=== PATIENT | male | born 1950 | race Caucasian/White ===

== ENCOUNTER 2016-08-10 13:25 | Inpatient (IN) | payer BC ==
[2016-08-10 13:36] VITALS: BMI 25.9
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
[2016-08-10] MEDS ORDERED: SODIUM CHLORIDE 1,000 ML IV STA (16:31)
[2016-08-10 16:46] LABS: BASOPHIL 0.9 % (0-2.0); EOSINOPHIL 0.7 % (0-4.5); MCH 29.1 pg (25.7-33.7); MCHC 33.5 g/dl (32.0-35.9); MEAN CELL VOLUME 87.1 fl (80-96); MEAN PLT VOLUME 8.1 fl (7.5-11.1); NEUTROPHILS 70.7 % (42.8-82.8); PLATELET COUNT 215 K/MM3 (134-434); RDW 14.1 % (11.9-15.9); WHITE BLOOD COUNT 7.3 K/mm3 (4.0-10.0)
[2016-08-10 17:07] LABS: ANION GAP 8 (8-16); CALCIUM 9.3 mg/dL (8.5-10.1); CO2 27 mmol/L (21-32); COCKROFT - GAULT 74.04; GLUCOSE,RANDOM 84 mg/dL (74-106); SGOT/AST 25 U/L (15-37); SGPT/ALT 28 U/L (12-78)
--- NOTE | 2016-08-10 17:16 | PDOC ---
*Physical Exam - Vital Signs Last Vital Signs Temp Pulse Resp BP Pulse Ox 97.8 F 72 18 144/91 98 08/10/16 13:27 08/10/16 13:27 08/10/16 13:27 08/10/16 13:27 08/10/16 13:27 ED Treatment Course - LABORATORY CBC & Chemistry Diagram: 08/10/16 16:33 08/11/16 05:35 - ADDITIONAL ORDERS Additional order review: 08/10/16 16:33 RBC 4.69 MCV 87.1 MCHC 33.5 RDW 14.1 MPV 8.1 Neutrophils % 70.7 Lymphocytes % 19.8 D Monocytes % 7.9 Eosinophils % 0.7 D Basophils % 0.9 Medical Decision Making - Medical Decision Making 08/10/16 18:09 Pt was signed out to me from Dr. Tineo 66y M presents with episodes of lightheadedness today, associated wit diaphoresis, slight vision change of things moving around (?vertigo), lasting approx 20 seconds for the longest episode and 2 episodes approx 5 seconds. No assocated headache, palpitations, cp, sob, n/v, diarrhea, melena. The pt had his pulse checked by someone doing some house work at the time and they noted his heart was 'racing'. pt asypmtomatic since arrival labs unremarkable will ck with dr. petty regarding recommendation for disposition - posisble outpt for holter vs obs? 08/10/16 18:[address] petty requests observation in telemetry Case discussed in detail with admitting physician including history, physical exam and ancillary studies. Admitting physician has assumed care for the patient, will follow all pending diagnostics and will complete the evaluation and treatment. *DC/Admit/Observation/Transfer Diagnosis at time of Disposition: Pre-syncope - Discharge Dispostion Admit: Yes - Referrals - Patient Instructions - Post Discharge Activity
[2016-08-10 17:17] LABS: ALK PHOS 68 U/L (45-117); BILIRUBIN,TOTAL 0.6 mg/dL (0.2-1.0); THYROID STIMULATING HORMONE 2.85 uIU/ml (0.358-3.74); TOT PROT 7.3 g/dl (6.4-8.2); TROPONIN I < 0.02 ng/ml (0.00-0.05)
[2016-08-10] MEDS ORDERED: ALBUTEROL SO4 6.7 GM HFA INHALER IH PRN (19:25)
[2016-08-10] MEDS: HEPARIN NA (PORCINE) 5,000 UNITS/ML 1ML VIAL SQ SCH (22:35)
[2016-08-10] MEDS: ATORVASTATIN CA 20 MG TABLET (FP) PO SCH (22:35)
[2016-08-10] MEDS: RANITIDINE HCL 150 MG TABLET (FP) PO SCH (22:35)
[2016-08-10 23:46] LABS: TROPONIN I < 0.02 ng/ml (0.00-0.05)
[2016-08-11 07:43] LABS: ALBUMIN 3.3 g/dl (3.4-5.0); ANION GAP 6 (8-16); CALCIUM 8.4 mg/dL (8.5-10.1); CO2 28 mmol/L (21-32); GLUCOSE,RANDOM 79 mg/dL (74-106)
[2016-08-11 07:47] LABS: ALK PHOS 58 U/L (45-117); BILIRUBIN,TOTAL 0.6 mg/dL (0.2-1.0); CHOLESTEROL 150 mg/dL (50-200); COCKROFT - GAULT 82.26; CREATININE 0.9 mg/dL (0.7-1.3); LDL CHOLESTEROL (ONLY SJRH) 89 mg/dL (5-100); SGOT/AST 22 U/L (15-37); SGPT/ALT 27 U/L (12-78); TOT PROT 6.1 g/dl (6.4-8.2); TROPONIN I < 0.02 ng/ml (0.00-0.05)
--- NOTE | 2016-08-11 10:27 | HP ---
Admitting History and Physical - Admission History of Present Illness: 66 year old male with a significant past medical history of asthma, GERD, HLD who presents to the ED with complaints of lightheadedness since earlier today. The patient reports he was standing outside his backyard when he had a sudden onset of lightheadedness. He states the room was spinning, his legs became weak, and he felt like he was about to fall. The patient reports a local diesel fleet mechanic was working in his backyard , took his pulse and told the patient his heart is racing and he looks pale. Patient states he sat down, drank some water and his symptoms subsided. He reports intermittent episodes of lightheadedness since the episode earlier today. Patient reports similar symptoms in the past but states present symptoms are worse. - Past Medical History Cardiovascular: Yes: HTN, Hyperlipdemia Pulmonary: Yes: Asthma Gastrointestinal: Yes: GERD - Smoking History Smoking history: Never smoked Aproximately how many cigarettes per day: 0 - Alcohol/Substance Use Hx Alcohol Use: No Home Medications - Allergies Allergies/Adverse Reactions: Allergies Allergy/AdvReac Type Severity Reaction Status Date / Time Penicillins Allergy Unknown Verified 08/10/16 13:36 - Home Medications Home Medications: Ambulatory Orders Alfuzosin HCl [Uroxatral] 10 mg PO BID 09/06/11 Atorvastatin Ca [Lipitor (Restricted To Cardiology)] 20 mg PO HS 09/06/11 Solifenacin Succinate [Vesicare] 10 mg PO DAILY 09/06/11 Aspirin [ASA] 81 mg PO DAILY 11/07/11 Cholecalciferol (Vitamin D3) [Vitamin D3] 1,000 unit PO DAILY 03/09/15 [place]-3/Dha/Epa/Fish Oil [Sm Fish Oil 1,000 mg Softgel] 1 each PO DAILY Ranitidine [Zantac -] 150 mg PO BID 03/09/15 Albuterol Sulfate Inhaler - [Ventolin HFA Inhaler -] 1 - 2 inh PO Q4H #1 inhaler 03/06/16 Review of Systems - Review of Systems Constitutional: reports: Weakness. denies: Lethargy Cardiovascular: denies: Edema Respiratory: denies: SOB, Wheezing Gastrointestinal: denies: Abdominal Pain Genitourinary: denies: Dysuria Neurological: reports: Dizziness, Weakness, Other ([place]OPE) Physical Examination Vital Signs: Vital Signs Temperature 98 F 08/11/16 10:00 Pulse Rate 70 08/11/16 10:00 Respiratory Rate 18 08/11/16 10:00 Blood Pressure 130/86 08/11/16 10:00 O2 Sat by Pulse Oximetry (%) 99 08/10/16 20:13 Cardiovascular: Yes: S1, S2 Respiratory: Yes: Regular, CTA Bilaterally Gastrointestinal: Yes: Normal Bowel Sounds, Soft Edema: No Neurological: Yes: Alert, Oriented Labs: CBC, BMP 08/11/16 05:35 Problem List - Problems (1) Pre-syncope Assessment/Plan: R/O ORTHOSTATIC CHANGES VS ARRHYTHMIA CE NEGATIVE CT OF HEAD ORTHOSTATIC BP CARDIO Code(s): R55 - SYNCOPE AND COLLAPSE (2) HLD (hyperlipidemia) Assessment/Plan: ON LIPITOR Code(s): E78.5 - HYPERLIPIDEMIA, UNSPECIFIED (3) Family history of cardiac arrest Assessment/Plan: W/U PER CARDIO Code(s): Z82.49 - FAMILY HX OF ISCHEM HEART DIS AND OTH DIS OF THE CIRC SYS
[2016-08-11] MEDS: RANITIDINE HCL 150 MG TABLET (FP) PO SCH ×2 (11:14→21:51)
[2016-08-11] MEDS: TAMSULOSIN HCL 0.4 MG CAP.ER.24H (FP) PO SCH (11:14)
[2016-08-11] MEDS: SOLIFENACIN SUCCINATE 5 MG TAB (FP) PO SCH (11:14)
[2016-08-11] MEDS: CHOLECALCIFEROL (VITAMIN D3) 1,000 UNIT TABLET (FP) PO SCH (11:14)
[2016-08-11] MEDS: ASPIRIN 81 MG CHEWABLE TABLETS PO SCH (11:14)
[2016-08-11] MEDS: HEPARIN NA (PORCINE) 5,000 UNITS/ML 1ML VIAL SQ SCH ×2 (11:15→21:51)
--- NOTE | 2016-08-11 16:38 | CON.CARD ---
Consult Consult Specialty:: Cardiology Reason for Consultation:: Near syncope - History of Present Illness History of Present Illness: This is a 66 year old male with a PMH of asthma, HLD and occasional GERD. On 08/10, while standing by a window, he felt on acute onset of lightheadedness and states he "almost passed out". He felt his legs weaken and he "went to the ground" but never lost consciousness. A friend who is a sfdc architect was working in his backyard , took his pulse and told the patient his heart is racing and he looks pale. After drinking water, the symptoms resolved. He has had similar episodes of this in the pasts but this one was more severe. He states he had a normal breakfast but did not drink his usual amount of water. - Past Medical History Cardio/Vascular: Yes: HTN, Hyperlipdemia Pulmonary: Yes: Asthma Gastrointestinal: Yes: GERD - Alcohol/Substance Use Hx Alcohol Use: No - Smoking History Smoking history: Never smoked Aproximately how many cigarettes per day: 0 Home Medications - Allergies Allergies/Adverse Reactions: Allergies Allergy/AdvReac Type Severity Reaction Status Date / Time Penicillins Allergy Unknown Verified 08/10/16 13:36 - Home Medications Home Medications: Ambulatory Orders Alfuzosin HCl [Uroxatral] 10 mg PO BID 09/06/11 Atorvastatin Ca [Lipitor (Restricted To Cardiology)] 20 mg PO HS 09/06/11 Solifenacin Succinate [Vesicare] 10 mg PO DAILY 09/06/11 Aspirin [ASA] 81 mg PO DAILY 11/07/11 Cholecalciferol (Vitamin D3) [Vitamin D3] 1,000 unit PO DAILY 03/09/15 [place]-3/Dha/Epa/Fish Oil [Sm Fish Oil 1,000 mg Softgel] 1 each PO DAILY Ranitidine [Zantac -] 150 mg PO BID 03/09/15 Albuterol Sulfate Inhaler - [Ventolin HFA Inhaler -] 1 - 2 inh PO Q4H #1 inhaler 03/06/16 Review of Systems Findings/Remarks: As per HPI Vital Signs: Vital Signs Temperature 98.3 F 08/11/16 14:04 Pulse Rate 72 08/11/16 14:04 Respiratory Rate 20 08/11/16 14:04 Blood Pressure 123/61 08/11/16 14:04 O2 Sat by Pulse Oximetry (%) 98 08/11/16 09:00 Constitutional: Yes: Well Nourished, No Distress Respiratory: Yes: CTA Bilaterally Gastrointestinal: Yes: Soft Cardiovascular: Yes: Regular Rate and Rhythm Heart Sounds: Yes: S1, S2 (No MRHG) Extremities: Yes: WNL Edema: No Peripheral Pulses WNL: Yes Neurological: Yes: WNL - Other Data Labs, Other Data: CBC, BMP 08/11/16 05:35 Troponin, BNP 08/10/16 08/11/16 23:00 05:35 Troponin I < 0.02 < 0.02 Troponin, BNP 08/10/16 08/11/16 23:00 05:35 Troponin I < 0.02 < 0.02 Assessment/Plan Near Syncope Etiology unclear but the episode sounds vasovagal perhaps brought on by dehydration although initial BUN was only 14 but this was after some hydration. Would obtain an Echocardiogram. Avoid diuretics Can liberalize sodium in the diet. Continue Liptor adn ASA.
--- NOTE | 2016-08-11 19:16 | EKG ---
Test Reason : Blood Pressure : / mmHG Vent. Rate : 065 BPM Atrial Rate : 065 BPM P-R Int : 166 ms QRS Dur : 092 ms QT Int : 390 ms P-R-T Axes : 060 026 058 degrees QTc Int : 405 ms NORMAL SINUS RHYTHM NORMAL ECG WHEN COMPARED WITH ECG OF 10-AUG-2016 15:46, NO SIGNIFICANT CHANGE WAS FOUND Confirmed by CHRISTIANA JAY MD ([id number]) on 08/11/2016 7:16:03 PM Referred By: Mariely ARENAS Confirmed By:CRHISTIANA JAY MD
--- NOTE | 2016-08-11 19:19 | EKG ---
Test Reason : Blood Pressure : / mmHG Vent. Rate : 060 BPM Atrial Rate : 060 BPM P-R Int : 164 ms QRS Dur : 088 ms QT Int : 402 ms P-R-T Axes : 053 017 054 degrees QTc Int : 402 ms NORMAL SINUS RHYTHM POSSIBLE LEFT ATRIAL ENLARGEMENT BORDERLINE ECG WHEN COMPARED WITH ECG OF 09-MAR-2015 10:29, NO SIGNIFICANT CHANGE WAS FOUND Confirmed by CHRISTIANA JAY MD ([id number]) on 08/11/2016 7:18:22 PM Referred By: Confirmed By:CHRISTIANA JAY MD
[2016-08-11] MEDS: ATORVASTATIN CA 20 MG TABLET (FP) PO SCH (21:49)
[2016-08-12] MEDS: RANITIDINE HCL 150 MG TABLET (FP) PO SCH (10:04)
[2016-08-12] MEDS: TAMSULOSIN HCL 0.4 MG CAP.ER.24H (FP) PO SCH (10:04)
[2016-08-12] MEDS: ASPIRIN 81 MG CHEWABLE TABLETS PO SCH (10:04)
[2016-08-12] MEDS: CHOLECALCIFEROL (VITAMIN D3) 1,000 UNIT TABLET (FP) PO SCH (10:05)
[2016-08-12] MEDS: HEPARIN NA (PORCINE) 5,000 UNITS/ML 1ML VIAL SQ SCH (10:05)
[2016-08-12] MEDS: SOLIFENACIN SUCCINATE 5 MG TAB (FP) PO SCH (10:05)
[2016-08-12 11:35] VITALS: BP 149/92; PULSE 64; TEMP 97.7
--- NOTE | 2016-08-12 12:47 | DS ---
Physical Examination Vital Signs: Vital Signs Temperature 97.7 F 08/12/16 10:00 Pulse Rate 64 08/12/16 10:00 Respiratory Rate 20 08/12/16 10:00 Blood Pressure 149/92 08/12/16 10:00 O2 Sat by Pulse Oximetry (%) 99 08/12/16 09:00 Cardiovascular: Yes: Regular Rate and Rhythm Respiratory: Yes: Regular, CTA Bilaterally Gastrointestinal: Yes: Normal Bowel Sounds, Soft Labs: CBC, BMP 08/11/16 05:35 Discharge Summary Reason For Visit: SYNCOPE Current Active Problems Family history of cardiac arrest (Acute) HLD (hyperlipidemia) (Acute) Pre-syncope (Acute) Hospital Course: 66 year old male with a significant past medical history of asthma, GERD, HLD who presents to the ED with complaints of lightheadedness since earlier today. The patient reports he was standing outside his backyard when he had a sudden onset of lightheadedness. He states the room was spinning, his legs became weak, and he felt like he was about to fall. The patient reports a local hydro pneumatic tester was working in his backyard , took his pulse and told the patient his heart is racing and he looks pale. Patient states he sat down, drank some water and his symptoms subsided. He reports intermittent episodes of lightheadedness since the episode earlier today. Patient reports similar symptoms in the past but states present symptoms are worse. - Past Medical History Cardiovascular: Yes: HTN, Hyperlipdemia Pulmonary: Yes: Asthma Gastrointestinal: Yes: GERD - Problems (1) Pre-syncope Assessment/Plan: R/O ORTHOSTATIC CHANGES VS ARRHYTHMIA CE NEGATIVE CT OF HEAD ORTHOSTATIC BP CARDIO Code(s): R55 - SYNCOPE AND COLLAPSE Assessment/Plan Near Syncope Etiology unclear but the episode sounds vasovagal perhaps brought on by dehydration although initial BUN was only 14 but this was after some hydration. Would obtain an Echocardiogram. Avoid diuretics Can liberalize sodium in the diet. Continue Liptor adn ASA. (2) HLD (hyperlipidemia) Assessment/Plan: ON LIPITOR Code(s): E78.5 - HYPERLIPIDEMIA, UNSPECIFIED (3) Family history of cardiac arrest Assessment/Plan: W/U PER CARDIO Code(s): Z82.49 - FAMILY HX OF ISCHEM HEART DIS AND OTH DIS OF THE CIRC SYS - Instructions Referrals: Leonel Myles MD [Primary Care Provider] - Disposition: HOME - Home Medications Comprehensive Discharge Medication List: Ambulatory Orders Alfuzosin HCl [Uroxatral] 10 mg PO BID 09/06/11 Atorvastatin Ca [Lipitor] 20 mg PO HS 09/06/11 Solifenacin Succinate [Vesicare] 10 mg PO DAILY 09/06/11 Aspirin [ASA -] 81 mg PO DAILY 11/07/11 Cholecalciferol (Vitamin D3) [Vitamin D3] 1,000 unit PO DAILY 03/09/15 [place]-3/Dha/Epa/Fish Oil [Sm Fish Oil 1,000 mg Softgel] 1 each PO DAILY Ranitidine [Zantac -] 150 mg PO BID 03/09/15 Albuterol Sulfate Inhaler - [Ventolin HFA Inhaler -] 1 - 2 inh PO Q4H #1 inhaler 03/06/16
== END 2016-08-12 13:50 | disposition home or self-care (01) | DRG 312 ==
LOC: JER 13:25 → JERBED 18:45 → J4W 20:42
PROVIDERS: ADMIT Family Medicine; ATTEND Family Medicine
DX: R55 Syncope and collapse (principal); K21.9 Gastro-esophageal reflux disease without esophagitis; J45.909 Unspecified asthma, uncomplicated; E78.5 Hyperlipidemia, unspecified; E86.0 Dehydration; Z82.49 Family history of ischemic heart disease and other diseases of the circulatory system
CPT/HCPCS: 36415; 70450-TC; 71010-TC; 80053; 80061; 82550; 82553; 83036; 83721; 84439; 84443; 84481; 84484; 85025; 93005; 93010; 99284-25; J1644

== ENCOUNTER 2017-08-21 10:15 | Observation (INO) | payer BC, OTHER ==
[2017-08-21 10:30] VITALS: BMI 25.9
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
[2017-08-21] MEDS ORDERED: predniSONE 20 MG TABLET (UD) PO ONE (11:11)
[2017-08-21] MEDS: ALBUTEROL SO4 2.5/IPRATROPIUM 0.5 INH SOL 3 ML VIAL.NEB. NEB SCH ×4 (11:17→12:45)
[2017-08-21] MEDS ORDERED: predniSONE 20 MG TABLET (UD) ONE (11:45)
[2017-08-21] MEDS ORDERED: ALBUTEROL SO4 2.5/IPRATROPIUM 0.5 INH SOL 3 ML VIAL.NEB. NEB ONE ×2 (11:46→12:24)
[2017-08-21] MEDS ORDERED: predniSONE 10 MG TABLET (UD) ONE (11:46)
--- NOTE | 2017-08-21 11:46 | EKG ---
Test Reason : Blood Pressure : / mmHG Vent. Rate : 092 BPM Atrial Rate : 092 BPM P-R Int : 140 ms QRS Dur : 078 ms QT Int : 350 ms P-R-T Axes : 062 023 083 degrees QTc Int : 432 ms NORMAL SINUS RHYTHM NONSPECIFIC ST AND T WAVE ABNORMALITY ABNORMAL ECG WHEN COMPARED WITH ECG OF 11-AUG-2016 09:42, NO SIGNIFICANT CHANGE WAS FOUND Confirmed by YESSY MORGAN, CHATO ([id number]) on 08/21/2017 11:46:35 AM Referred By: Confirmed By:CHATO KRISHNAMURTHY MD
[2017-08-21 12:39] LABS: BASO % 0.8 % (0-2.0); EOS % 1.3 % (0-4.5); HEMATOCRIT 39.4 % (35.4-49); HEMOGLOBIN 13.3 GM/dL (11.7-16.9); LYMPH % 14.6 % (8-40); MCH 30.1 pg (25.7-33.7); MCHC 33.8 g/dl (32.0-35.9); MEAN PLT VOLUME 7.8 fl (7.5-11.1); MONO % 10.3 % (3.8-10.2); PLATELET COUNT 223 K/MM3 (134-434); RBC 4.43 M/mm3 (4.00-5.60); RDW 13.6 % (11.9-15.9); WHITE BLOOD COUNT 7.5 K/mm3 (4.0-10.0)
[2017-08-21 12:51] LABS: ALBUMIN 3.6 g/dl (3.4-5.0); ANION GAP 7 (8-16); BILIRUBIN,TOTAL 0.4 mg/dL (0.2-1.0); BLOOD UREA NITROGEN 10 mg/dL (7-18); CALCIUM 8.7 mg/dL (8.5-10.1); CHLORIDE 105 mmol/L (98-107); CO2 30 mmol/L (21-32); CREATININE 0.9 mg/dL (0.7-1.3); GLUCOSE,RANDOM 102 mg/dL (74-106); POTASSIUM 4.4 mmol/L (3.5-5.1); SGOT/AST 20 U/L (15-37); SGPT/ALT 31 U/L (12-78); SODIUM 142 mmol/L (136-145)
[2017-08-21 12:53] LABS: ALK PHOS 68 U/L (45-117)
[2017-08-21] MEDS: ATORVASTATIN CA 20 MG TABLET (FP) PO SCH (22:09)
[2017-08-21] MEDS: RANITIDINE HCL 150 MG TABLET (FP) PO SCH (22:09)
[2017-08-21] MEDS: HEPARIN NA (PORCINE) 5,000 UNITS/ML 1ML VIAL SQ SCH (22:10)
--- NOTE | 2017-08-22 09:40 | HP ---
Admitting History and Physical - Admission History of Present Illness: c/o cough and congestion then developed chest pain and sob - Past Medical History Cardiovascular: Yes: HTN, Hyperlipdemia Pulmonary: Yes: Asthma Gastrointestinal: Yes: GERD - Smoking History Smoking history: Never smoked Aproximately how many cigarettes per day: 0 - Alcohol/Substance Use Hx Alcohol Use: No Home Medications - Allergies Allergies/Adverse Reactions: Allergies Allergy/AdvReac Type Severity Reaction Status Date / Time Penicillins Allergy Unknown Verified 08/21/17 10:26 - Home Medications Home Medications: Ambulatory Orders Alfuzosin HCl [Uroxatral] 10 mg PO BID 09/06/11 Atorvastatin Ca [Lipitor] 20 mg PO HS 09/06/11 Solifenacin Succinate [Vesicare] 10 mg PO DAILY 09/06/11 Aspirin [ASA -] 81 mg PO DAILY 11/07/11 Cholecalciferol (Vitamin D3) [Vitamin D3] 1,000 unit PO DAILY 03/09/15 [place]-3/Dha/Epa/Fish Oil [Sm Fish Oil 1,000 mg Softgel] 1 each PO DAILY Ranitidine [Zantac -] 150 mg PO BID 03/09/15 Albuterol Sulfate Inhaler - [Ventolin HFA Inhaler -] 1 - 2 inh PO Q4H #1 inhaler 03/06/16 Review of Systems - Review of Systems Cardiovascular: reports: Chest Pain, Shortness of Breath Respiratory: reports: Cough, Wheezing Gastrointestinal: denies: Abdominal Pain Physical Examination Vital Signs: Vital Signs Temperature 98.2 F 08/21/17 18:47 Pulse Rate 96 H 08/21/17 18:47 Respiratory Rate 20 08/21/17 23:10 Blood Pressure 162/92 08/21/17 18:47 O2 Sat by Pulse Oximetry (%) 98 08/21/17 23:10 Cardiovascular: Yes: Regular Rate and Rhythm Respiratory: Yes: Diminished, Wheezes Gastrointestinal: Yes: Normal Bowel Sounds, Soft Edema: No Labs: CBC, BMP 08/21/17 12:15 08/21/17 12:15 Imaging - Results Chest X-ray: Report Reviewed Problem List - Problems (1) Chest pain Assessment/Plan: -cardiology -follow ce -resolved Code(s): R07.9 - CHEST PAIN, UNSPECIFIED (2) Abnormal EKG Assessment/Plan: -per cardio -review rpt Code(s): R94.31 - ABNORMAL ELECTROCARDIOGRAM [ECG] [EKG] (3) Asthma Assessment/Plan: -nebs -solumedrol Code(s): J45.909 - UNSPECIFIED ASTHMA, UNCOMPLICATED (4) Shortness of breath Assessment/Plan: -as above Code(s): R06.02 - SHORTNESS OF BREATH
[2017-08-22] MEDS: ASPIRIN 81 MG CHEWABLE TABLETS PO SCH (10:11)
[2017-08-22] MEDS: HEPARIN NA (PORCINE) 5,000 UNITS/ML 1ML VIAL SQ SCH ×2 (10:11→21:53)
[2017-08-22] MEDS: SOLIFENACIN SUCCINATE 5 MG TAB (FP) PO SCH (10:11)
[2017-08-22] MEDS: RANITIDINE HCL 150 MG TABLET (FP) PO SCH ×2 (10:11→21:54)
--- NOTE | 2017-08-22 13:26 | CON.CARD ---
Consult Consult Specialty:: Cardioology Reason for Consultation:: dyspnea - History of Present Illness History of Present Illness: 67-year-old male, with a past medical history of asthma, GERD, hyperlipidemia, who presents to the ED with shortness of breath and wheezing. Has had URI cough and congestion in chest and nose for about 10 days. The patient states that his symptoms began after he ran up the stairs to answer a phone call. He reports using his inhaler with mild relief of his symptoms. He denies having any chest pain. He denies any recent travel. - History Source History Provided By: Patient - Past Medical History Cardio/Vascular: Yes: HTN, Hyperlipdemia Pulmonary: Yes: Asthma Gastrointestinal: Yes: GERD - Alcohol/Substance Use Hx Alcohol Use: No - Smoking History Smoking history: Never smoked Aproximately how many cigarettes per day: 0 Home Medications - Allergies Allergies/Adverse Reactions: Allergies Allergy/AdvReac Type Severity Reaction Status Date / Time Penicillins Allergy Unknown Verified 08/21/17 10:26 - Home Medications Home Medications: Ambulatory Orders Alfuzosin HCl [Uroxatral] 10 mg PO BID 09/06/11 Atorvastatin Ca [Lipitor] 20 mg PO HS 09/06/11 Solifenacin Succinate [Vesicare] 10 mg PO DAILY 09/06/11 Aspirin [ASA -] 81 mg PO DAILY 11/07/11 Cholecalciferol (Vitamin D3) [Vitamin D3] 1,000 unit PO DAILY 03/09/15 [place]-3/Dha/Epa/Fish Oil [Sm Fish Oil 1,000 mg Softgel] 1 each PO DAILY Ranitidine [Zantac -] 150 mg PO BID 03/09/15 Albuterol Sulfate Inhaler - [Ventolin HFA Inhaler -] 1 - 2 inh PO Q4H #1 inhaler 03/06/16 Review of Systems - Review of Systems Constitutional: reports: No Symptoms. denies: Chills, Diaphoresis, Fever, Lethargy Eyes: reports: No Symptoms HENT: reports: No Symptoms. denies: Difficult Swallowing, Ear Pain Neck: reports: No Symptoms Cardiovascular: reports: Shortness of Breath. denies: Chest Pain, Edema, Palpitations Respiratory: reports: Cough. denies: Exercise Intolerance Gastrointestinal: reports: No Symptoms. denies: Abdominal Pain, Constipation, Diarrhea Genitourinary: reports: No Symptoms Vital Signs: Vital Signs Temperature 97.8 F 08/22/17 09:00 Pulse Rate 97 H 08/22/17 09:00 Respiratory Rate 20 08/22/17 09:00 Blood Pressure 130/85 08/22/17 09:00 O2 Sat by Pulse Oximetry (%) 98 08/22/17 09:00 Constitutional: Yes: Well Nourished, No Distress, Calm Eyes: Yes: WNL, Conjunctiva Clear, EOM Intact HENT: Yes: WNL, Atraumatic, Normocephalic Neck: Yes: Supple, Trachea Midline Respiratory: Yes: Regular, Rhonchi, Wheezes. No: Rales, SOB Gastrointestinal: Yes: Normal Bowel Sounds, Soft Cardiovascular: Yes: WNL, Regular Rate and Rhythm. No: Gallop, Rub JVD: No Carotid Bruit: No PMI: Non-Displaced Heart Sounds: Yes: S1, S2 Murmur: No: Systolic Murmur, Diastolic Murmur - Other Data Labs, Other Data: CBC, BMP 08/21/17 12:15 08/21/17 12:15 Troponin, BNP 08/21/17 15:00 Troponin I < 0.02 Troponin, BNP 08/21/17 15:00 Troponin I < 0.[address] - Results Chest X-ray: Report Reviewed Problem List - Problems (1) Shortness of breath Code(s): R06.02 - SHORTNESS OF BREATH Assessment/Plan Several days of URI cough and congestion with transient dyspnea and wheezing now resolved. CXR showed normal cardiac size and no infiltrates, effusion or vascular congestion. ECG without ischemic changes. Likely bronchitis/sinusitis. No evidence of cardiac dysfunction. Will see as needed.
--- NOTE | 2017-08-22 15:37 | EKG ---
Test Reason : Blood Pressure : / mmHG Vent. Rate : 077 BPM Atrial Rate : 077 BPM P-R Int : 158 ms QRS Dur : 086 ms QT Int : 380 ms P-R-T Axes : 052 013 053 degrees QTc Int : 430 ms NORMAL SINUS RHYTHM POSSIBLE LEFT ATRIAL ENLARGEMENT BORDERLINE ECG WHEN COMPARED WITH ECG OF 21-AUG-2017 10:35, NO SIGNIFICANT CHANGE WAS FOUND Confirmed by CHELSY FIGUEROA MD ([id number]) on 08/22/2017 3:37:01 PM Referred By: Confirmed By:CHELSY FIGUEROA MD
[2017-08-22] MEDS: methylPREDNISolone NA SUCC 40 MG/1 ML VIAL IVPUSH SCH (17:45)
[2017-08-22] MEDS: ALBUTEROL SO4 2.5/IPRATROPIUM 0.5 INH SOL 3 ML VIAL.NEB. NEB SCH (20:33)
[2017-08-22] MEDS: ATORVASTATIN CA 20 MG TABLET (FP) PO SCH (21:54)
[2017-08-23] MEDS: methylPREDNISolone NA SUCC 40 MG/1 ML VIAL IVPUSH SCH ×2 (00:59→10:14)
[2017-08-23] MEDS: ALBUTEROL SO4 2.5/IPRATROPIUM 0.5 INH SOL 3 ML VIAL.NEB. NEB SCH ×2 (07:20→11:02)
[2017-08-23 08:25] VITALS: BP 155/98; PULSE 104; TEMP 98.3
--- NOTE | 2017-08-23 09:45 | DS ---
Physical Examination Vital Signs: Vital Signs Temperature 98.3 F 08/23/17 08:22 Pulse Rate 104 H 08/23/17 08:22 Respiratory Rate 20 08/23/17 08:22 Blood Pressure 155/98 08/23/17 08:22 O2 Sat by Pulse Oximetry (%) 98 08/23/17 06:14 Labs: CBC, BMP 08/21/17 12:15 08/21/17 12:15 Discharge Summary Reason For Visit: SHORTNESS OF BREATH Current Active Problems Abnormal EKG (Acute) Asthma (Acute) Chest pain (Acute) Shortness of breath (Acute) Condition: Improved - Instructions Referrals: Leonel Myles MD [Primary Care Provider] - Disposition: HOME - Home Medications Comprehensive Discharge Medication List: Ambulatory Orders Alfuzosin HCl [Uroxatral] 10 mg PO BID 09/06/11 Atorvastatin Ca [Lipitor] 20 mg PO HS 09/06/11 Solifenacin Succinate [Vesicare] 10 mg PO DAILY 09/06/11 Aspirin [ASA -] 81 mg PO DAILY 11/07/11 Cholecalciferol (Vitamin D3) [Vitamin D3] 1,000 unit PO DAILY 03/09/15 [place]-3/Dha/Epa/Fish Oil [Sm Fish Oil 1,000 mg Softgel] 1 each PO DAILY Ranitidine [Zantac -] 150 mg PO BID 03/09/15 Albuterol Sulfate Inhaler - [Ventolin HFA Inhaler -] 1 - 2 inh PO Q4H #1 inhaler 03/06/16 Prednisone 20 mg PO BID #16 tab.ds.pk 08/23/17 levoFLOXacin [Levaquin -] 500 mg PO DAILY@0600 #5 tablet 08/23/17
[2017-08-23] MEDS: SOLIFENACIN SUCCINATE 5 MG TAB (FP) PO SCH (10:10)
[2017-08-23] MEDS: RANITIDINE HCL 150 MG TABLET (FP) PO SCH (10:11)
[2017-08-23] MEDS: HEPARIN NA (PORCINE) 5,000 UNITS/ML 1ML VIAL SQ SCH (10:11)
[2017-08-23] MEDS: ASPIRIN 81 MG CHEWABLE TABLETS PO SCH (10:11)
== END 2017-08-23 13:00 | disposition home or self-care (01) ==
LOC: JER 10:15 → JERBED 15:54 → J4W 18:20
PROVIDERS: ADMIT Family Medicine; ATTEND Family Medicine
PROC: 3E033GC Introduction of Other Therapeutic Substance into Peripheral Vein, Percutaneous Approach (ICD-10-PCS; principal; 2017-08-21)
PROC: 3E013GC Introduction of Other Therapeutic Substance into Subcutaneous Tissue, Percutaneous Approach (ICD-10-PCS; 2017-08-21)
PROC: 3E0F7GC Introduction of Other Therapeutic Substance into Respiratory Tract, Via Natural or Artificial Opening (ICD-10-PCS; 2017-08-21)
DX: R06.02 Shortness of breath (principal); R07.9 Chest pain, unspecified; R94.31 Abnormal electrocardiogram [ECG] [EKG]; J45.909 Unspecified asthma, uncomplicated; E78.5 Hyperlipidemia, unspecified; K21.9 Gastro-esophageal reflux disease without esophagitis; Z88.0 Allergy status to penicillin; Z79.82 Long term (current) use of aspirin
CPT/HCPCS: 36415; 71045-TC-FY; 80053; 83880; 84484; 85025; 93005; 93010; 94640; 99283-25; G0378; J1644; J7620

== ENCOUNTER 2019-02-05 12:38 | Emergency (ER) | payer BC ==
[2019-02-05 12:56] VITALS: BP 155/78; PULSE 81; TEMP 97.7; BMI 26.6
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
== END 2019-02-05 13:43 | disposition home or self-care (01) ==
LOC: JER 12:38 → JERFT 12:38
DX: J06.9 Acute upper respiratory infection, unspecified (principal); Z88.0 Allergy status to penicillin; K21.9 Gastro-esophageal reflux disease without esophagitis; N40.0 Benign prostatic hyperplasia without lower urinary tract symptoms; E78.00 Pure hypercholesterolemia, unspecified
CPT/HCPCS: 99281-25

== ENCOUNTER 2020-08-22 04:38 | Day surgery (SDC) | payer OTHER, BC ==
[2020-08-22 09:29] VITALS: TEMP 98; BMI 25.8
[2020-08-22 11:09] VITALS: BP 118/60; PULSE 53
== END 2020-08-22 11:08 | disposition home or self-care (01) ==
LOC: JASU-ENDO 04:38
PROVIDERS: ATTEND Internal Medicine Gastroenterology
PROC: 0DB68ZX Excision of Stomach, Via Natural or Artificial Opening Endoscopic, Diagnostic (ICD-10-PCS; 2020-08-22)
PROC: 0DB28ZX Excision of Middle Esophagus, Via Natural or Artificial Opening Endoscopic, Diagnostic (ICD-10-PCS; 2020-08-22)
PROC: 0DB38ZX Excision of Lower Esophagus, Via Natural or Artificial Opening Endoscopic, Diagnostic (ICD-10-PCS; principal; 2020-08-22 10:00)
DX: K21.9 Gastro-esophageal reflux disease without esophagitis (principal); K44.9 Diaphragmatic hernia without obstruction or gangrene; K29.50 Unspecified chronic gastritis without bleeding
CPT/HCPCS: 88305-TC; 88342-TC

== ENCOUNTER 2021-02-16 13:36 | Emergency (ER) | payer BC ==
[2021-02-16 14:08] VITALS: BP 167/82; PULSE 77; TEMP 98.2; BMI 25.3
== END 2021-02-16 16:13 | disposition home or self-care (01) ==
LOC: JER 13:36
DX: M79.651 Pain in right thigh (principal)
CPT/HCPCS: 93971-RT; 99283-25

== ENCOUNTER 2022-07-24 14:26 | Emergency (ER) | payer OTHER, BC ==
[2022-07-24 14:32] VITALS: BP 132/70; TEMP 98; BMI 25.4
[2022-07-24 15:21] VITALS: PULSE 67; RESP 18
== END 2022-07-24 15:22 | disposition home or self-care (01) ==
LOC: JER 14:26
DX: J38.5 Laryngeal spasm (principal); J45.909 Unspecified asthma, uncomplicated
CPT/HCPCS: 93005; 93010; 99283-25

== ENCOUNTER 2022-09-13 17:18 | Emergency (ER) | payer OTHER, BC ==
[2022-09-13 17:44] VITALS: BP 123/60; PULSE 70; RESP 17; TEMP 98.2; BMI 57.9
[2022-09-13 19:22] LABS: INR 1.24 (0.83-1.09); PROTHROMBIN TIME (PATIENT) 14.4 SEC (9.7-13.0)
[2022-09-13 19:25] LABS: ACTIVATED PTT 29.1 SECONDS (25.2-36.5)
[2022-09-13 19:31] LABS: POTASSIUM 4.5 mmol/L (3.5-5.1)
[2022-09-13 19:33] LABS: ALBUMIN 3.6 g/dl (3.4-5.0); BLOOD UREA NITROGEN 12.6 mg/dL (7-18)
[2022-09-13 19:37] LABS: CREATININE 0.9 mg/dL (0.55-1.3)
[2022-09-13 19:38] LABS: BILIRUBIN,TOTAL 0.5 mg/dL (0.2-1); TOT PROT 6.4 g/dl (6.4-8.2)
[2022-09-13] MEDS ORDERED: SODIUM CHLORIDE 0.9% 500 ML INFUS.BAG IV ONE (19:58)
[2022-09-13 21:36] LABS: BASO % 0.6 % (0-2.0); EOS % 0.7 % (0-4.5); HEMOGLOBIN 12.2 GM/dL (11.7-16.9); LYMPH % 13.4 % (8-40); MCH 29.2 pg (25.7-33.7); MCHC 32.9 g/dl (32.0-35.9); MEAN CELL VOLUME 88.7 fl (80-96); MEAN PLT VOLUME 9.1 fl (7.5-11.1); MONO % 10.3 % (3.8-10.2); PLATELET COUNT 222 10^3/uL (134-434); RBC 4.18 M/mm3 (4.00-5.60); RDW 13.6 % (11.9-15.9); WHITE BLOOD COUNT 9.9 K/mm3 (4.0-10.0)
== END 2022-09-13 22:47 | disposition home or self-care (01) ==
LOC: JER 17:18
DX: K62.5 Hemorrhage of anus and rectum (principal); R10.84 Generalized abdominal pain; R19.7 Diarrhea, unspecified; R55 Syncope and collapse; R42 Dizziness and giddiness
CPT/HCPCS: 36415; 80053; 82272; 85025; 85610; 85730; 86850; 86900; 86901; 93005; 93010; 99284-25

== ENCOUNTER 2022-09-14 12:30 | Emergency (ER) | payer OTHER, BC ==
[2022-09-14 12:47] VITALS: BP 133/73; PULSE 83; RESP 17; TEMP 98.2; BMI 26.8
[2022-09-14] MEDS ORDERED: SODIUM CHLORIDE 500 ML IV STA (13:40)
[2022-09-14] MEDS ORDERED: SODIUM CHLORIDE 1,000 ML IV STA (13:50)
[2022-09-14 14:10] LABS: BASO % 0.9 % (0-2.0); EOS % 1.2 % (0-4.5); HEMATOCRIT 37.8 % (35.4-49); HEMOGLOBIN 12.8 GM/dL (11.7-16.9); LYMPH % 17.8 % (8-40); MCH 29.4 pg (25.7-33.7); MCHC 33.8 g/dl (32.0-35.9); MEAN CELL VOLUME 86.9 fl (80-96); MEAN PLT VOLUME 7.9 fl (7.5-11.1); MONO % 12.8 % (3.8-10.2); NEUT % 67.3 % (42.8-82.8); PLATELET COUNT 233 10^3/uL (134-434); RBC 4.36 M/mm3 (4.00-5.60); RDW 14.1 % (11.9-15.9); WHITE BLOOD COUNT 7.4 K/mm3 (4.0-10.0)
[2022-09-14 14:15] LABS: POTASSIUM 4.5 mmol/L (3.5-5.1)
[2022-09-14 14:19] LABS: ALBUMIN 3.3 g/dl (3.4-5.0); BLOOD UREA NITROGEN 10.1 mg/dL (7-18)
[2022-09-14 14:23] LABS: TOT PROT 6.2 g/dl (6.4-8.2)
[2022-09-14 14:24] LABS: BILIRUBIN,TOTAL 0.4 mg/dL (0.2-1)
[2022-09-14 14:56] LABS: INR 1.23 (0.83-1.09); PROTHROMBIN TIME (PATIENT) 14.2 SEC (9.7-13.0)
== END 2022-09-14 18:38 | disposition home or self-care (01) ==
LOC: JER 12:30
PROC: 3E0337Z Introduction of Electrolytic and Water Balance Substance into Peripheral Vein, Percutaneous Approach (ICD-10-PCS; principal; 2022-09-14)
DX: K57.30 Diverticulosis of large intestine without perforation or abscess without bleeding (principal); K65.2 Spontaneous bacterial peritonitis; R19.7 Diarrhea, unspecified; K92.1 Melena
CPT/HCPCS: 36415; 74174-TC; 80053; 85025; 85610; 86850; 86900; 86901; 93005; 93010; 99285-25; Q9967

== ENCOUNTER 2022-10-01 05:21 | Day surgery (SDC) | payer OTHER, BC ==
[2022-09-26 10:45] VITALS: BMI 25.8
[2022-10-01 10:32] VITALS: RESP 18
[2022-10-01] MEDS ORDERED: ONDANSETRON 4 MG/2 ML VIAL ONE (13:07)
[2022-10-01] MEDS ORDERED: MIDAZOLAM HCL 2 MG/2 ML SINGLE DOSE VIAL ONE (13:08)
[2022-10-01 14:40] VITALS: BP 134/76; PULSE 54; TEMP 97.6
== END 2022-10-01 14:40 | disposition home or self-care (01) ==
LOC: JASU-SURG 05:21
PROVIDERS: ATTEND Urology
PROC: 0TF3XZZ Fragmentation in Right Kidney Pelvis, External Approach (ICD-10-PCS; principal; 2022-10-01 12:00)
DX: N20.0 Calculus of kidney (principal)

== ENCOUNTER 2022-11-21 10:51 | Emergency (ER) | payer OTHER, BC ==
[2022-11-21 11:17] VITALS: RESP 16; BMI 26.3
[2022-11-21 13:27] VITALS: BP 121/71; PULSE 62; TEMP 97.9
== END 2022-11-21 14:41 | disposition home or self-care (01) ==
LOC: JERFT 10:51
DX: R05.9 Cough, unspecified (principal); R09.82 Postnasal drip; Z20.822 Contact with and (suspected) exposure to COVID-19
CPT/HCPCS: 0241U-QW; 70360-TC-FY; 71046-TC-FY; 99284-25

== ENCOUNTER 2023-05-30 04:58 | Day surgery (SDC) | payer OTHER, BC ==
[2023-05-27 09:53] VITALS: BMI 26.2
[2023-05-30 11:38] VITALS: TEMP 97.8
[2023-05-30 12:18] VITALS: BP 97/55; PULSE 53; RESP 15
== END 2023-05-30 12:45 | disposition home or self-care (01) ==
LOC: JASU-ENDO 04:58
PROVIDERS: ATTEND Internal Medicine Gastroenterology
PROC: 0DB98ZX Excision of Duodenum, Via Natural or Artificial Opening Endoscopic, Diagnostic (ICD-10-PCS; 2023-05-30)
PROC: 0DB78ZX Excision of Stomach, Pylorus, Via Natural or Artificial Opening Endoscopic, Diagnostic (ICD-10-PCS; 2023-05-30)
PROC: 0DB68ZX Excision of Stomach, Via Natural or Artificial Opening Endoscopic, Diagnostic (ICD-10-PCS; 2023-05-30)
PROC: 0DB28ZX Excision of Middle Esophagus, Via Natural or Artificial Opening Endoscopic, Diagnostic (ICD-10-PCS; 2023-05-30)
PROC: 0DB38ZX Excision of Lower Esophagus, Via Natural or Artificial Opening Endoscopic, Diagnostic (ICD-10-PCS; 2023-05-30)
PROC: 0DBL8ZX Excision of Transverse Colon, Via Natural or Artificial Opening Endoscopic, Diagnostic (ICD-10-PCS; principal; 2023-05-30 11:00)
DX: Z12.11 Encounter for screening for malignant neoplasm of colon (principal); D12.3 Benign neoplasm of transverse colon; K57.30 Diverticulosis of large intestine without perforation or abscess without bleeding; Z86.010 Personal history of colon polyps; Z98.0 Intestinal bypass and anastomosis status; K29.50 Unspecified chronic gastritis without bleeding; K20.90 Esophagitis, unspecified without bleeding
CPT/HCPCS: 88305-TC; 88312-TC; 88342-TC

== ENCOUNTER 2023-06-04 11:57 | Emergency (ER) | payer OTHER, BC ==
[2023-06-04 12:07] VITALS: TEMP 98.5; BMI 26.3
[2023-06-04] MEDS ORDERED: DEXAMETHASONE SOD PHOSPHATE 10 MG/1 ML VIAL ONE (12:29)
[2023-06-04] MEDS: DEXAMETHASONE SOD PHOSPHATE 10 MG/1 ML VIAL IVPUSH ONE (12:49)
[2023-06-04] MEDS: ALBUTEROL SO4 2.5/IPRATROPIUM 0.5 INH SOL 3 ML VIAL.NEB. NEB SCH (12:51)
[2023-06-04 13:03] LABS: BASO % 0.7 % (0-2.0); EOS % 0.2 % (0-4.5); HEMATOCRIT 37.7 % (35.4-49); HEMOGLOBIN 12.9 GM/dL (11.7-16.9); MCH 30.6 pg (25.7-33.7); MCHC 34.3 g/dl (32.0-35.9); MEAN CELL VOLUME 89.2 fl (80-96); MEAN PLT VOLUME 7.6 fl (7.5-11.1); MONO % 14.7 % (3.8-10.2); NEUT % 73.4 % (42.8-82.8); PLATELET COUNT 194 10^3/uL (134-434); RBC 4.22 M/mm3 (4.00-5.60); RDW 13.8 % (11.9-15.9); WHITE BLOOD COUNT 8.1 K/mm3 (4.0-10.0)
[2023-06-04 13:26] LABS: POTASSIUM 5.3 mmol/L (3.5-5.1)
[2023-06-04 13:29] LABS: CALCIUM 9.1 mg/dL (8.5-10.1)
[2023-06-04 13:30] LABS: BLOOD UREA NITROGEN 16.9 mg/dL (7-18)
[2023-06-04 13:32] LABS: ALBUMIN 3.6 g/dl (3.4-5.0)
[2023-06-04 13:33] LABS: CREATININE 1.2 mg/dL (0.55-1.3)
[2023-06-04 13:34] LABS: BILIRUBIN,TOTAL 0.7 mg/dL (0.2-1)
[2023-06-04 14:14] VITALS: BP 123/59; PULSE 86; RESP 20
== END 2023-06-04 14:15 | disposition home or self-care (01) ==
LOC: JER 11:57
PROC: 3E033GC Introduction of Other Therapeutic Substance into Peripheral Vein, Percutaneous Approach (ICD-10-PCS; principal; 2023-06-04)
PROC: 3E0F7GC Introduction of Other Therapeutic Substance into Respiratory Tract, Via Natural or Artificial Opening (ICD-10-PCS; 2023-06-04)
DX: R06.02 Shortness of breath (principal); R05.9 Cough, unspecified; J06.9 Acute upper respiratory infection, unspecified; U07.1 COVID-19
CPT/HCPCS: 0241U-QW; 36415; 71045-TC-FY; 80053; 84484; 85025; 93005; 93010; 94640; 96374; 99285-25; J1100

== ENCOUNTER 2024-09-13 08:51 | Inpatient (IN) | payer OTHER, BC ==
[2024-09-13 10:03] LABS: ABSOLUTE IMMATURE GRANULOCYTES 0.02 x10^3/uL (0.0-0.031); BASOPHILS # 0.05 x10^3/uL (0.01-0.08); EOSINOPHIL % 0.8 % (0.8-7.0); EOSINOPHILS # 0.06 x10^3/uL (0.04-0.54); MCHC 32.9 g/dl (32.3-36.5); MEAN CELL VOLUME 90.3 fl (79.0-92.2); MEAN PLT VOLUME 10.2 fl (9.4-12.4); MONOCYTE # 0.51 x10^3/uL (0.30-0.82); MONOCYTE % 6.9 % (5.3-12.2); RDW 13.1 % (12.2-16.6)
[2024-09-13] MEDS: SODIUM CHLORIDE 0.9% 500 ML INFUS.BAG IV ONE (10:10)
[2024-09-13 10:28] LABS: CO2 25.0 mmol/L (21-32); GLUCOSE,RANDOM 128.0 mg/dL (74-106)
[2024-09-13 10:31] LABS: CREATININE 1.1 mg/dL (0.55-1.3); SGOT/AST 20.0 U/L (15-37); SGPT/ALT 33.0 U/L (13-61)
[2024-09-13 10:32] LABS: TOT PROT 6.7 g/dl (6.4-8.2)
[2024-09-13 10:34] LABS: ALK PHOS 67.0 U/L (45-117)
[2024-09-13 11:28] LABS: HCV DIAGNOSTIC IN-HOUSE W/RFLX NON-REACTIVE (NONREACTIVE)
[2024-09-13 11:29] LABS: HIV INTERPRETATION NEGATIVE (NEGATIVE)
[2024-09-13] MEDS ORDERED: ALBUTEROL SO4 2.5/IPRATROPIUM 0.5 INH SOL 3 ML VIAL.NEB. NEB PRN (17:04)
[2024-09-13] MEDS ORDERED: ATORVASTATIN CA 20 MG TABLET (FP) ONE (21:55)
[2024-09-13] MEDS: ATORVASTATIN CA 20 MG TABLET (FP) PO SCH (21:57)
[2024-09-13] MEDS: LOSARTAN POTASSIUM 50 MG TABLET PO SCH (22:00)
[2024-09-14 07:13] LABS: ABSOLUTE IMMATURE GRANULOCYTES 0.02 x10^3/uL (0.0-0.031); BASOPHILS # 0.06 x10^3/uL (0.01-0.08); EOSINOPHIL % 1.9 % (0.8-7.0); EOSINOPHILS # 0.14 x10^3/uL (0.04-0.54); MCHC 32.3 g/dl (32.3-36.5); MEAN CELL VOLUME 91.5 fl (79.0-92.2); MEAN PLT VOLUME 11.0 fl (9.4-12.4); MONOCYTE # 0.91 x10^3/uL (0.30-0.82); MONOCYTE % 12.2 % (5.3-12.2); RDW 13.2 % (12.2-16.6)
[2024-09-14 07:40] LABS: CO2 25.0 mmol/L (21-32); GLUCOSE,RANDOM 100.0 mg/dL (74-106)
[2024-09-14 07:43] LABS: CREATININE 1.0 mg/dL (0.55-1.3); SGOT/AST 22.0 U/L (15-37); SGPT/ALT 29.0 U/L (13-61)
[2024-09-14 07:45] LABS: TOT PROT 5.9 g/dl (6.4-8.2)
[2024-09-14 07:46] LABS: ALK PHOS 64.0 U/L (45-117)
[2024-09-14] MEDS ORDERED: TAMSULOSIN HCL 0.4 MG CAP ONE (08:54)
[2024-09-14] MEDS: TAMSULOSIN HCL 0.4 MG CAP PO SCH (08:57)
[2024-09-14] MEDS ORDERED: ALFUZOSIN HCL 10 MG PO SCH (10:00)
[2024-09-14] MEDS: NEBIVOLOL 2.5 MG TABLET (FP) PO SCH (10:12)
[2024-09-14] MEDS: ASPIRIN 81 MG CHEWABLE TABLETS PO SCH (10:12)
[2024-09-14 12:30] VITALS: BMI 26.6
[2024-09-15] MEDS: ENOXAPARIN NA (PORCINE) 40 MG/0.4 ML DISP.SYRIN SQ SCH (10:06)
[2024-09-15] MEDS: AMINO ACIDS/PROTEIN HYDROLYS 30 ML LIQUID.PKT PO SCH (17:31)
[2024-09-16 10:10] VITALS: RESP 18; TEMP 97.9
[2024-09-16 15:14] VITALS: BP 132/74; PULSE 56
== END 2024-09-16 18:30 | disposition home or self-care (01) | DRG 312 ==
LOC: JER 08:51 → JERBED 12:26 → OBSVTOIN 16:57 → J4S 09-14 09:05
PROVIDERS: ADMIT Family Medicine; ATTEND Family Medicine
DX: R55 Syncope and collapse (principal); I10 Essential (primary) hypertension; J44.9 Chronic obstructive pulmonary disease, unspecified; K21.9 Gastro-esophageal reflux disease without esophagitis; E78.5 Hyperlipidemia, unspecified; N40.0 Benign prostatic hyperplasia without lower urinary tract symptoms; S01.21XA Laceration without foreign body of nose, initial encounter; W19.XXXA Unspecified fall, initial encounter; Y93.89 Activity, other specified; Y92.89 Other specified places as the place of occurrence of the external cause; Y99.8 Other external cause status
CPT/HCPCS: 36415; 70450-TC; 70486-TC; 71045-TC-FY; 72125-TC; 80053; 83735; 84484; 85025; 86803; 87389; 87637-QW; 93005; 93010; 93306-TC; 93880-TC; 97116-GP; 97161-GP; 99285-25; G0378